=== PATIENT | female | born 1965 | race Asian ===

== ENCOUNTER 2022-03-16 19:56 | Emergency (ER) | payer OTHER ==
[~2022-03-16] VITALS: Ht 154.9 cm; Wt 70.9 kg
[2022-03-16] MEDS ORDERED: LISI-893 PO (20:09)
[2022-03-16] MEDS ORDERED: METF-1211 PO (20:09)
[2022-03-16] MEDS ORDERED: SIMV-260 PO (20:09)
[2022-03-16] MEDS ORDERED: DICL100G31 TP (20:18)
[2022-03-16] MEDS ORDERED: TENO25TA PO (20:18)
[2022-03-16] MEDS ORDERED: ESCI5TAB16 PO (20:18)
[2022-03-16] MEDS ORDERED: ARIP15TA27 PO (20:18)
[2022-03-16 21:32] LABS: BASOPHILS % (AUTO) 0.8 % (0.0-2.0); EOSINOPHILS % (AUTO) 0.2 % (1.0-6.0); HEMATOCRIT 38.2 % (36-46); HEMOGLOBIN 12.6 g/dL (12.0-16.0); LYMPHOCYTES # (AUTO) 1.9 K/uL (1.0-4.8); LYMPHOCYTES % (AUTO) 27.1 % (22.0-44.0); MEAN CORPUSCULAR HEMOGLOBIN 29.4 pg (26.0-34.0); MEAN CORPUSCULAR HGB CONC 32.9 G/dL (31.0-37.0); MEAN CORPUSCULAR VOLUME 89 fL (80-100); MONOCYTES # (AUTO) 0.7 K/uL (0.1-1.0); MONOCYTES % (AUTO) 10.4 % (2.0-9.0); NEUTROPHILS # (AUTO) 4.3 K/uL (1.8-7.7); NEUTROPHILS % (AUTO) 61.5 % (40.0-70.0); PLATELET COUNT (AUTO) 230 K/uL (150-450); RED BLOOD CELL COUNT(AUTO) 4.29 MIL/uL (4.00-5.20); RED CELL DISTRIBUTION WIDTH 13.3 % (11.5-14.5)
[2022-03-16 21:44] LABS: ANION GAP 3 mmol/L (8-16); CARBON DIOXIDE 29 mmol/L (22-29); CHLORIDE 105 mmol/L (98-107); CREATININE 0.93 mg/dL (0.60-1.30); GLOMERULAR FILTR. RATE CALC > 60 mL/min (>60); GLUCOSE,RANDOM 122 mg/dL (70-110); POTASSIUM 3.8 mmol/L (3.5-5.1); SODIUM SERUM 137 mmol/L (136-145); UREA NITROGEN, BLOOD 11 mg/dL (7-18)
[2022-03-16 21:50] LABS: ALANINE AMINOTRANSFERASE 24 U/L (12-78); ALBUMIN 3.3 g/dL (3.4-5.0); ALKALINE PHOSPHATASE 65 U/L (46-116); ASPARTATE AMINOTRANSFERASE 22 U/L (15-37); BILIRUBIN,TOTAL 0.3 mg/dL (0.1-1.0); TOTAL PROTEIN, SERUM 6.4 g/dL (6.4-8.2)
[2022-03-16 21:52] LABS: LACTIC ACID 0.5 mmol/L (0.4-2.0)
[2022-03-16] MEDS ORDERED: IBUPROFEN 600 MG TABLET PO ONE (22:00)
[2022-03-16] MEDS ORDERED: ACETAMINOPHEN 500 MG TABLET PO ONE (22:00)
[2022-03-16] MEDS ORDERED: GuaiFENesin/D-METHORPHAN [SUGAR-FREE] 200-20MG/10 ML SYRUP UDCUP PO ONE (22:00)
[2022-03-16 22:49] LABS: COVID AG,FIA SOURCE NASOPHARYNGEAL
[2022-03-16 23:25] VITALS: BP 119/71
[2022-03-16 23:33] LABS: INFLUENZA TYPE A NEGATIVE FOR TYPE A (NEGATIVE); INFLUENZA TYPE B NEGATIVE FOR TYPE B (NEGATIVE)
[2022-03-17] MEDS ORDERED: GUAIFDM PO (00:03)
[2022-03-17] MEDS ORDERED: IBUP-1554 PO (00:03)
[2022-03-17] MEDS ORDERED: ACET-66 PO (00:03)
== END 2022-03-17 01:49 | disposition home or self-care (01) ==
LOC: EMS 20:00
DX: U07.1 COVID-19 (principal); J06.9 Acute upper respiratory infection, unspecified; I10 Essential (primary) hypertension; Z79.899 Other long term (current) drug therapy; E11.9 Type 2 diabetes mellitus without complications; Z79.84 Long term (current) use of oral hypoglycemic drugs
CPT/HCPCS: 71045; 80053; 83605; 85025; 87804; 99284

== ENCOUNTER 2023-11-10 08:33 | Emergency (ER) | payer OTHER ==
[~2023-11-10] VITALS: Ht 154.9 cm; Wt 68.2 kg
[~2023-11-10 08:33] MED LIST: ACET-66 PO; ARIP15TA27 PO; DICL2100G TP; ESCI5TAB16 PO; GUAIFDM PO; IBUP-1554 PO; LISI-893 PO; METF-1211 PO; SIMV-260 PO; TENO25TA PO
[2023-11-10 08:39] VITALS: BP 114/93; PULSE 64; RESP 18; TEMP 98
== END 2023-11-10 10:49 | disposition home or self-care (01) ==
LOC: EMS 08:35
DX: R23.8 Other skin changes (principal); E11.9 Type 2 diabetes mellitus without complications; E78.00 Pure hypercholesterolemia, unspecified; I10 Essential (primary) hypertension
CPT/HCPCS: 99281; Z7502